=== PATIENT | female | born 1985 | race Caucasian/White ===

== ENCOUNTER 2017-06-28 11:08 | Emergency (ER) | payer SELFPAY ==
[2017-06-28 11:38] LABS: #Basophils 0.1 thou/uL (0.0-0.2); #Eosinphils 0.3 thou/uL (0.0-0.7); #Lymphocytes 2.1 thou/uL (1.20-3.40); #Monocytes 0.9 thou/uL (0.11-0.59); #Neutrophils 13.3 thou/uL (1.40-6.50); %Basophils 0.4 % (0.0-1.0); %Eosinophils 1.7 % (0.0-10.0); %Lymphocytes 12.9 % (21.0-51.0); %Monocytes 5.2 % (0.0-10.0); %Neutrophils 79.8 % (42.0-75.0); Mean Corpuscular HGB CONC 34.5 g/dL (32.0-36.0); Mean Corpuscular Hemoglobin 29.8 pg (27.0-31.0); Mean Corpuscular Volume 86.5 fl (81.0-99.0); Mean Platelet Volume 7.6 fL (7.4-10.4); Platelet Count 373 thou/uL (130-400); RBC Distribution Width 11.4 % (11.5-14.5); Red Blood Cell (RBC) Count 4.68 mill/uL (4.20-5.40); White Blood Cell (WBC) Count 16.7 thou/uL (4.8-10.8)
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
[2017-06-28 11:58] LABS: ALT (SGPT) 45 U/L (8-55); AST (SGOT) 19 U/L (5-34); Albumin 3.9 g/dL (3.5-5.0); Alcohol Less than 10 mg/dL (Less than 10); Alkaline Phosphatase 88 U/L (40-150); Anion Gap 10 mmol/L (10-20); BUN (Urea Nitrogen) 9 mg/dL (7.0-18.7); Bilirubin, Total 0.5 mg/dL (0.2-1.2); Calc. Creatinine Clearance 0 mL/min (70-130); Calcium 8.7 mg/dL (7.8-10.44); Carbon Dioxide 24 mmol/L (22-29); Chloride 105 mmol/L (98-107); Estimated GFR-MDRD Greater than 90; Globulin 2.8 g/dL (2.4-3.5); Glucose 225 mg/dL (70-105); Potassium 3.3 mmol/L (3.5-5.1); Protein, Total 6.7 g/dL (6.0-8.3); Sodium 136 mmol/L (136-145)
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
[2017-06-28] MEDS ORDERED: ISOVUE-370 76%-LOCM 1 ML ONE (12:39)
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
[2017-06-28] MEDS ORDERED: HYDROcodone/Acetaminophen 5/325 mg Tablet ONE ×2 (13:12→13:14)
[2017-06-28] MEDS ORDERED: Ketorolac Tromethamine 30 MG/ML VIAL ONE (13:12)
== END 2017-06-28 13:39 | disposition home or self-care (01) ==
LOC: ERS 11:08
DX: S80.12XA Contusion of left lower leg, initial encounter (principal); S50.312A Abrasion of left elbow, initial encounter; E11.9 Type 2 diabetes mellitus without complications; F17.210 Nicotine dependence, cigarettes, uncomplicated; V89.2XXA Person injured in unspecified motor-vehicle accident, traffic, initial encounter
CPT/HCPCS: 70450; 71260; 72125; 74177; 80053; 80307; 85025; 96374; G0390; J1885

== ENCOUNTER 2017-11-28 20:16 | Emergency (ER) | payer SELFPAY ==
[2017-11-28 20:44] LABS: #Eosinphils 0.3 thou/uL (0.0-0.7); #Lymphocytes 2.9 thou/uL (1.20-3.40); #Monocytes 0.7 thou/uL (0.11-0.59); #Neutrophils 11.8 thou/uL (1.40-6.50); %Basophils 0.2 % (0.0-1.0); %Eosinophils 1.8 % (0.0-10.0); %Lymphocytes 18.5 % (21.0-51.0); %Monocytes 4.3 % (0.0-10.0); %Neutrophils 75.2 % (42.0-75.0); Hemoglobin 14.5 g/dL (12.0-16.0); Mean Corpuscular HGB CONC 30.7 g/dL (32.0-36.0); Mean Corpuscular Hemoglobin 26.5 pg (27.0-31.0); Mean Corpuscular Volume 86.4 fL (78.0-98.0); Platelet Count 434 thou/uL (130-400); RBC Distribution Width 12.1 % (11.5-14.5); Red Blood Cell (RBC) Count 5.46 mill/uL (4.20-5.40); White Blood Cell (WBC) Count 15.7 thou/uL (4.8-10.8)
[2017-11-28 20:51] LABS: Bilirubin Small (Negative); Blood, Urine Negative (Negative); Clarity CLEAR (Clear); Glucose, Urine (Dipstick) 500 mg/dL (Negative); Leukocyte Negative (Negative); Nitrite Negative (Negative); Pregnancy Test - Urine (BHCG) Negative (Negative); Pregu Control Background? CLEAR/WHITE (CLR/WHITE); Pregu Control Bar Appear? YES (CONTROL BAR); Protein, Urine (Dipstick) 30 mg/dL (Neg-Trace); Urobilinogen 0.2 mg/dL (0.2-1.0); pH, Urine 5.5 (5.0-9.0)
[2017-11-28 20:52] LABS: Bacteria/HPF None Seen HPF (None Seen); Hyaline Casts/LPF 4-6 HYALINE CAST LPF (0-3 Hyaline); Pathc Cast-AUWi Flag 1.74 (0-2.49); RBC/HPF 0-3 HPF (0-3); WBC/HPF 0-3 HPF (0-3)
[2017-11-28 21:04] LABS: ALT (SGPT) 33 U/L (8-55); AST (SGOT) 16 U/L (5-34); Albumin 4.3 g/dL (3.5-5.0); Alkaline Phosphatase 105 U/L (40-150); Anion Gap 16 mmol/L (10-20); BUN (Urea Nitrogen) 8 mg/dL (7.0-18.7); Bilirubin, Total 0.4 mg/dL (0.2-1.2); Calc. Creatinine Clearance 0 mL/min (70-130); Calcium 9.5 mg/dL (7.8-10.44); Carbon Dioxide 22 mmol/L (22-29); Chloride 102 mmol/L (98-107); Estimated GFR-MDRD 78; Globulin 3.4 g/dL (2.4-3.5); Glucose 235 mg/dL (70-105); Lipase 21 U/L (8-78); Potassium 3.7 mmol/L (3.5-5.1); Protein, Total 7.7 g/dL (6.0-8.3); Sodium 136 mmol/L (136-145)
[2017-11-28] MEDS ORDERED: Ondansetron HCl/PF 4 MG/2 ML Vial ONE (21:15)
[2017-11-28] MEDS ORDERED: Morphine 4 MG/ML VIAL ONE (21:15)
--- NOTE | 2017-11-28 21:55 | ULT ---
SONOGRAM RIGHT UPPER QUADRANT: HISTORY: Right upper quadrant pain. FINDINGS: Multiple shadowing stone are present within the gallbladder lumen. The patient was reportedly tender over the gallbladder fossa at the time of the exam. No gallbladder wall thickening or pericholecyst ic fluid. The common duct is 0.3 cm. The liver is diffusely echogenic, without focal mass or intrah epatic biliary dilatation. No free fluid. IMPRESSION: 1. Cholelithiasis. 2. A positive sonographic Miller sign can be a sign of acute cholecystitis. No other sonographic fi ndings. 3. Hepatosteatosis. POS: [facility]
== END 2017-11-28 21:55 | disposition home or self-care (01) ==
LOC: ERS 20:16
DX: K80.20 Calculus of gallbladder without cholecystitis without obstruction (principal); E11.9 Type 2 diabetes mellitus without complications; F17.210 Nicotine dependence, cigarettes, uncomplicated
CPT/HCPCS: 76705; 80053; 81003; 81015; 81025; 83690; 85025; 96374; 96375; J2270; J2405

== ENCOUNTER 2017-12-14 18:49 | Observation (INO) | payer SELFPAY ==
[2017-12-14] MEDS ORDERED: Ondansetron PF 4 MG/2 ML Vial ONE (19:10)
[2017-12-14] MEDS ORDERED: Morphine 4 MG/ML VIAL ONE ×2 (19:10→22:38)
[2017-12-14] MEDS ORDERED: Pantoprazole 40 MG VIAL ONE (19:10)
[2017-12-14 19:20] LABS: #Basophils 0.1 thou/uL (0.0-0.2); #Eosinphils 0.4 thou/uL (0.0-0.7); #Lymphocytes 2.7 thou/uL (1.20-3.40); #Monocytes 0.6 thou/uL (0.11-0.59); #Neutrophils 8.2 thou/uL (1.40-6.50); %Basophils 0.6 % (0.0-1.0); %Lymphocytes 22.7 % (21.0-51.0); %Monocytes 4.9 % (0.0-10.0); %Neutrophils 68.8 % (42.0-75.0); Hemoglobin 16.1 g/dL (12.0-16.0); Mean Corpuscular HGB CONC 34.1 g/dL (32.0-36.0); Mean Corpuscular Hemoglobin 29.7 pg (27.0-31.0); Mean Corpuscular Volume 87.1 fL (78.0-98.0); Mean Platelet Volume 7.5 fL (7.4-10.4); Platelet Count 387 thou/uL (130-400); Red Blood Cell (RBC) Count 5.42 mill/uL (4.20-5.40); White Blood Cell (WBC) Count 11.9 thou/uL (4.8-10.8)
--- NOTE | 2017-12-14 19:22 | RAD ---
CHEST ONE VIEW: 12/14/17 HISTORY: Pain. COMPARISON: None. FINDINGS: Normal cardiac silhouette. Pulmonary vessels and hilum are normal. Costophrenic angles are clear. No masses or consolidation. No pneumothorax or osseous abnormalities. IMPRESSION: No acute cardiopulmonary process. POS: [facility]
[2017-12-14 19:28] LABS: BHCG - Serum Negative (NEGATIVE); Pregs Control Background? CLEAR/WHITE (CLR/WHITE); Pregs Control Bar Appear? YES (CONTROL BAR)
[2017-12-14 19:42] LABS: ALT (SGPT) 42 U/L (8-55); AST (SGOT) 21 U/L (5-34); Albumin 4.3 g/dL (3.5-5.0); Alkaline Phosphatase 111 U/L (40-150); Anion Gap 13 mmol/L (10-20); BUN (Urea Nitrogen) 9 mg/dL (7.0-18.7); Bilirubin, Total 0.4 mg/dL (0.2-1.2); Calc. Creatinine Clearance 0 mL/min (70-130); Calcium 9.5 mg/dL (7.8-10.44); Carbon Dioxide 25 mmol/L (22-29); Chloride 102 mmol/L (98-107); Estimated GFR-MDRD 82; Globulin 3.4 g/dL (2.4-3.5); Glucose 202 mg/dL (70-105); Lipase 17 U/L (8-78); Potassium 3.8 mmol/L (3.5-5.1); Protein, Total 7.7 g/dL (6.0-8.3); Sodium 136 mmol/L (136-145)
[2017-12-14 20:42] LABS: Bilirubin Negative (Negative); Blood, Urine Negative (Negative); Clarity CLOUDY (Clear); Glucose, Urine (Dipstick) Negative (Negative); Leukocyte Negative (Negative); Nitrite Negative (Negative); Protein, Urine (Dipstick) Negative (Neg-Trace); Specific Gravity, Urine 1.018 (1.002-1.036); Urobilinogen 0.2 mg/dL (0.2-1.0); pH, Urine 5.5 (5.0-9.0)
[2017-12-14 20:44] LABS: Pregnancy Test - Urine (BHCG) Negative (Negative); Pregu Control Background? CLEAR/WHITE (CLR/WHITE); Pregu Control Bar Appear? YES (CONTROL BAR); Specific Gravity 1.018 (1.002-1.036)
--- NOTE | 2017-12-14 21:33 | ULT ---
RIGHT UPPER QUADRANT ABDOMINAL ULTRASOUND 12/14/17 COMPARISON: 11/28/17. HISTORY: Right upper quadrant abdominal pain. TECHNIQUE: Multiplanar mcfarlane scale and color doppler images were obtained in a right upper quadrant abdominal ult rasound. FINDINGS: Images demonstrate increased echogenicity without focal lesions or intrahepatic ductal dilatation. Th ere are multiple shadowing gallstones in the gallbladder without gallbladder wall thickening of peric holecystic fluid. The common bile duct is normal measuring 4 mm. The visualized portions of the pancreas are unremarkable. The right kidney is normal in echotexture w ithout hydronephrosis or calculus and measures 11.0 cm in length IMPRESSION: 1. Cholelithiasis. 2. Fatty liver. POS: [facility]
[2017-12-14] MEDS ORDERED: MEROPENEM 1 GM/50 ML 1 GM in Premix Bag 1 BAG IVPB SCH (22:45)
[2017-12-14] MEDS ORDERED: Ondansetron ODT 4 MG TAB SL PRN (23:42)
[2017-12-14] MEDS ORDERED: Ondansetron PF 4 MG/2 ML Vial IVP PRN (23:42)
[2017-12-15 00:14] VITALS: BMI 46.4
[2017-12-15] MEDS: D5 1/2 NS w/20 mEq KCL 1,000 ML IV SCH ×2 (00:20→14:36)
[2017-12-15] MEDS: Morphine 4 MG/ML VIAL SLOW IVP PRN ×4 (00:56→08:31)
[2017-12-15] MEDS ORDERED: MEROPENEM 1 GM/50 ML 1 GM in Premix Bag 1 BAG IVPB SCH ×2 (08:00→14:00)
--- NOTE | 2017-12-15 09:42 | HP ---
CHIEF COMPLAINT: Abdominal pain. HISTORY OF PRESENT ILLNESS: Ms. Riley is a 32-year-old woman with intermittent right upper quadrant and epigastric pain for the past several years. She has been diagnosed with gallstones, but has not yet seen a surgeon to proceed with a cholecystectomy. She has been in to the ER 3 times in the past year and twice in recent weeks. She states that the episode seems to be getting more frequent and s evere. Her most recent episode started yesterday afternoon and was quite severe. She had nausea and vomiting which is unusual for her. She usually has nausea, but has not really thrown up very often before. Her emesis was a sandwich that she had eaten before the pain came on. She did not have any coffee ground emesis. She came into the ER because the pain was not relenting and she was having chi lls. She was found to have an elevated white blood cell count, but her bile duct was normal caliber and her LFTs were normal. She was admitted for IV antibiotics and pain control and feels better this morning. She is ribbon lap machine tender to palpation in the right upper quadrant, but the pain is much better than it was last night. PAST MEDICAL HISTORY: Diabetes. She was previously on metformin for this, but lost her insurance an d has been off of her medications for the past year. She has been trying to watch what she eats. He r blood sugar last night in the emergency room was 202, but she does not know what it has been runnin g typically at home because she does not have a way to check it. She also has a history of tobacco a buse and smokes a pack a day, although she is trying to quit. PAST SURGICAL HISTORY: None. FAMILY HISTORY: Diabetes in her maternal grandmother. REVIEW OF SYSTEMS: Ten system review of systems is negative except per HPI and some mild congestion which she attributes to starting a new job in the [employer] section of [employer]. SOCIAL HISTORY: She smokes a pack a day, but does not drink or use illicit drugs. OUTPATIENT MEDICATIONS: None. ALLERGIES: No known drug allergies. PHYSICAL EXAMINATION: VITAL SIGNS: The patient has been afebrile, heart rate 56, respirations 20, 94% saturated on room ai r, blood pressure 121/59. GENERAL: Reveals a morbidly obese young woman in no acute distress. She is not jaundiced or icteric . She is not flushed or toxic in appearance. HEENT: Unremarkable. Her dentures have been removed. NECK: Supple, without lymphadenopathy or thyroid nodules. HEART: Regular in its rate and rhythm without murmurs, rubs or gallops. LUNGS: She has some scattered wheezing which is best heard centrally. She is clear in the bases and has good air movement. ABDOMEN: Soft and nondistended. She has no palpable masses or hernias. She does have some follicul itis on her lower pannus and in her intertriginous folds. She is tender to palpation in the right up per quadrant, but otherwise nontender. EXTREMITIES: Warm and well perfused without edema. NEUROLOGIC: No focal deficits. PSYCHIATRIC: Alert, oriented, and appropriate. LABORATORY AND X-RAY FINDINGS: White count is mildly elevated at 11.9. Electrolytes are unremarkabl e. Glucose 202. Bilirubin, AST, ALT, and alkaline phosphatase are all normal as is lipase and a ser um test is negative. UA is clear. Ultrasound showed cholelithiasis without bile duct dila tation. ASSESSMENT: Symptomatic cholelithiasis and likely chronic cholecystitis. PLAN: I have recommended laparoscopic cholecystectomy for symptomatic relief. The procedure and its inherent risks were discussed with the patient. These include, but are not limited to bleeding, inf ection, risks of anesthesia, damage to nearby structures including bowel, liver and bile duct, need f or open surgery and need for other procedures. She understands and accepts these risks and wishes to proceed. She is on scheduled antibiotics. Anticipate that if she does well with her surgery and is able to ambulate and tolerate clear liquids and her pain is controlled on oral medications postopera tively she will be able to go home this afternoon. All of her questions were answered.
[2017-12-15] MEDS ORDERED: Bupivacaine/Epinephrine 0.25% 30 ML VIAL ONE (10:27)
[2017-12-15] MEDS ORDERED: Fentanyl 250 MCG/5 ML VIAL ONE (10:40)
[2017-12-15] MEDS ORDERED: PROPOFOL 200 MG/20 ML VIAL ONE (11:47)
[2017-12-15] MEDS ORDERED: Ondansetron PF 4 MG/2 ML Vial ONE (11:47)
[2017-12-15] MEDS ORDERED: Dexamethasone 20 MG/5 ML VIAL ONE (11:47)
[2017-12-15] MEDS ORDERED: Glycopyrrolate 0.2 MG/ML 5 ML SYRINGE ONE (11:47)
[2017-12-15] MEDS ORDERED: Promethazine HCl 25 MG/ML VIAL SLOW IVP PRN (12:34)
[2017-12-15] MEDS ORDERED: Ondansetron HCl/PF 4 MG/2 ML Vial IVP PRN (12:34)
[2017-12-15] MEDS ORDERED: Promethazine HCl 25 MG/ML VIAL IM PRN (12:34)
[2017-12-15] MEDS ORDERED: Fentanyl 100 MCG/2 ML VIAL ONE ×2 (12:46→13:07)
[2017-12-15] MEDS ORDERED: Promethazine HCl 25 MG/ML VIAL ONE (13:00)
[2017-12-15] MEDS ORDERED: Ibuprofen 200 MG TAB PO PRN ×2 (13:56→13:57)
[2017-12-15] MEDS ORDERED: Promethazine 25 MG TAB PO PRN (13:56)
[2017-12-15] MEDS ORDERED: Ondansetron PF 4 MG/2 ML Vial IVP PRN (13:56)
[2017-12-15] MEDS ORDERED: Ibuprofen 600 MG TAB PO PRN (13:57)
[2017-12-15] MEDS ORDERED: Acetaminophen 325 MG TAB PO PRN ×2 (13:58)
[2017-12-15] MEDS ORDERED: HYDROcodone/Acetaminophen 7.5/325 mg Tablet PO PRN ×2 (13:58→13:59)
[2017-12-15] MEDS ORDERED: Morphine 2 MG/ML SYRINGE SLOW IVP PRN (13:59)
[2017-12-15] MEDS ORDERED: D5 1/2 NS w/20 mEq KCL 1,000 ML IV SCH (14:00)
[2017-12-15] MEDS ORDERED: Morphine 4 MG/ML VIAL IV PRN (14:00)
[2017-12-15 17:36] VITALS: TEMP 97.6
[2017-12-15 18:25] VITALS: BP 126/79
--- NOTE | 2017-12-26 16:58 | EKG ---
Test Reason : Blood Pressure : / mmHG Vent. Rate : 056 BPM Atrial Rate : 056 BPM P-R Int : 130 ms QRS Dur : 082 ms QT Int : 448 ms P-R-T Axes : 029 031 021 degrees QTc Int : 432 ms Sinus bradycardia with sinus arrhythmia Low voltage QRS Borderline ECG Confirmed by DESIRAE KNOWLES, LASHAY ([id number]), industrial editor IJEOMA CHAUHAN ([id number]) on 12/26/2017 4:58:09 PM Referred By: Confirmed By:LASHAY MERRILL MD
--- NOTE | 2018-01-20 01:11 | OP ---
DATE OF PROCEDURE: 12/15/2017 PROCEDURE PERFORMED: Laparoscopic cholecystectomy. PREOPERATIVE DIAGNOSES: Cholelithiasis and cholecystitis. POSTOPERATIVE DIAGNOSES: Cholelithiasis and cholecystitis. HISTORY: Ms. Riley is a 32-year-old woman who presented to the hospital with signs and symptoms of cholecystitis. She was found to have gallstones on ultrasound and recommendation was made to proceed to the operating room for laparoscopic cholecystectomy. Her LFTs were normal and her bile duct was not dilated. FINDINGS: Wide wall of gallbladder with omental adhesions and a stone impacted in the neck. DESCRIPTION OF PROCEDURE: After informed consent was obtained and appropriate preoperative antibiotics were administered, the patient was taken to the operating room where she was placed in supine position and general endotracheal anesthesia was administered. She was prepped and draped in a standard sterile fashion and local anesthesia infused through skin and subcutaneous tissues at the level of the umbilicus. A transverse skin incision was made. The fascia was elevated and a Veress needle placed into the abdominal cavity without difficulty. Opening pressure was less than 5, and carbon dioxide gas easily insufflated to an intraabdominal pressure of 15, which the patient tolerated well. The Veress needle was withdrawn and a ClearView port advanced under direct vision into the abdominal cavity, which was carefully examined. There was no evidence of Veress needle or trocar injury. Local anesthesia was infused to the skin and subcutaneous tissues at the epigastric, right upper quadrant, and right lateral abdominal sites. Skin incisions were made and trocars placed under direct laparoscopic vision. The fundus of the gallbladder was grasped and retracted superiorly. The omental adhesions were taken down through the avascular plane using electrocautery as necessary. The infundibulum was identified, grasped, and withdrawn laterally and the serosa stripped inferiorly at the level of the neck of the gallbladder exposing the cystic artery and duct which were dissected free circumferentially. A critical view of safety was obtained and the cystic artery and duct clipped and divided between clips. The gallbladder was then dissected free off the gallbladder bed using hook electrocautery. Prior to complete removal of the gallbladder from the gallbladder bed, the areas of the cystic duct and artery stumps was examined. The clips were in good position completely across both the structures. There was no bleeding and no leakage of bile. The gallbladder was then completely removed from the gallbladder bed, placed into an EndoCatch bag and drawn out through the epigastric incision after crushing the large stone impacted in the neck of the gallbladder. The epigastric trocar was replaced and the operative site again examined for hemostasis which was excellent. The epigastric trocar was removed and the fascia closed under direct laparoscopic vision with a 0 Vicryl suture using a granny needle with excellent technical result. The right upper quadrant and right lateral trocars were then removed and hemostasis at these sites verified. Carbon dioxide gas was let to desufflate through the umbilical trocar which was then removed. Additional local anesthesia was infused at each incision site for postoperative pain control and the skin incisions were closed with 4-0 subcuticular Monocryl sutures. Dermabond dressings were placed. The patient was extubated and taken to the recovery room in good condition. ESTIMATED BLOOD LOSS: Minimal. COMPLICATIONS: There were no complications. SPECIMENS: Gallbladder and contents. Job ID: [id number]
== END 2017-12-15 18:28 | disposition home or self-care (01) ==
LOC: ERS 18:49 → SJJU 21:21
PROVIDERS: ADMIT Surgery; ATTEND Surgery
PROC: 0FT44ZZ Resection of Gallbladder, Percutaneous Endoscopic Approach (ICD-10-PCS; principal; 2017-12-15)
DX: K80.10 Calculus of gallbladder with chronic cholecystitis without obstruction (principal); K66.0 Peritoneal adhesions (postprocedural) (postinfection); E11.9 Type 2 diabetes mellitus without complications; F17.210 Nicotine dependence, cigarettes, uncomplicated
CPT/HCPCS: 71045; 76705; 80053; 81003; 81025; 83690; 84703; 85025; 88304; 93005; 96361; 96365; 96366; 96374; 96375; 96376; C9113; G0378; J1100; J2185; J2270; J2405; J2550; J2704; J3010

== ENCOUNTER 2018-11-26 00:57 | Emergency (ER) | payer OTHER, SELFPAY ==
[2018-11-26] MEDS ORDERED: Ketorolac Tromethamine 60 MG/2 ML VIAL ONE (02:53)
[2018-11-26 03:33] LABS: Pregnancy Test - Urine (BHCG) Negative (Negative); Pregu Control Background? CLEAR/WHITE (CLR/WHITE); Pregu Control Bar Appear? YES (CONTROL BAR); Specific Gravity 1.027 (1.002-1.036)
--- NOTE | 2018-11-26 07:57 | RAD ---
Left foot 3 views HISTORY: Left foot lump with pain. FINDINGS: Lisfranc joint alignment is anatomic. Loss of plantar arch. Degenerative changes throughout the foot. Plantar heel spur at the inferior calcaneus. Slightly comminuted irregular fracture plane extends through the fifth metatarsal base with well keegan icated margins. No callus formation or periosteal reaction. Prominent overlying soft tissue swelling. No acute fractures are apparent. IMPRESSION: Chronic, ununited Amor fracture left fifth metatarsal base. Overlying soft tissue swelli ng much greater than normally seen. Other cause not evident. No radiopaque foreign bodies are visible. Plantar heel spur. Degenerative changes throughout the foot.
== END 2018-11-26 05:55 | disposition home or self-care (01) ==
LOC: ERS 00:57
DX: S92.352A Displaced fracture of fifth metatarsal bone, left foot, initial encounter for closed fracture (principal); E11.9 Type 2 diabetes mellitus without complications; F31.9 Bipolar disorder, unspecified; F90.9 Attention-deficit hyperactivity disorder, unspecified type; F17.210 Nicotine dependence, cigarettes, uncomplicated; X58.XXXA Exposure to other specified factors, initial encounter
CPT/HCPCS: 81025; 96372; J1885

== ENCOUNTER 2021-08-26 10:32 | Outpatient (CLI) | payer OTHER | END 2021-08-26 10:33 | disposition home or self-care (01) | LOC: BICRAD 10:32 | PROVIDERS: ATTEND Nurse Practitioner Family | DX: M25.561 Pain in right knee (principal); M17.11 Unilateral primary osteoarthritis, right knee ==